=== PATIENT | male | born 1970 | race Caucasian/White ===

== ENCOUNTER → 2016-12-03 | Outpatient (CLI) | payer BC | LOC: RAD 15:22 | PROVIDERS: ATTEND Physician Assistant | DX: M25.521 Pain in right elbow (principal) ==

== ENCOUNTER → 2017-06-10 | Outpatient (CLI) | payer BC ==
[2017-06-10 13:53] LABS: ABSOLUTE BASOPHILS # (AUTO) 0.1 10^3/uL (0.0-0.2); ABSOLUTE EOSINOPHILS # (AUTO) 0.2 10^3/uL (0.0-0.6); ABSOLUTE LYMPHOCYTES (AUTO) 2.4 10^3/uL (0.5-4.7); ABSOLUTE MONOCYTES (AUTO) 0.8 10^3/uL (0.1-1.4); BASOPHILS % (AUTO) 0.8 % (0-2); EOSINOPHILS % (AUTO) 2.9 % (0-6); HEMATOCRIT 41.6 % (37.9-51.0); HEMOGLOBIN 14.1 g/dL (13.5-17.0); HGB HCT DIFFERENCE 0.7; LYMPHOCYTES % (AUTO) 28.3 % (13-45); MEAN CORPUSCULAR HEMOGLOBIN 29.3 pg (27.0-33.4); MEAN CORPUSCULAR HGB CONC 33.9 g/dL (32.0-36.0); MEAN CORPUSCULAR VOLUME 86 fl (80-97); MONOCYTES % (AUTO) 8.9 % (3-13); RED BLOOD COUNT 4.82 10^6/uL (4.35-5.55); RED CELL DISTRIBUTION WIDTH 13.3 % (11.5-14.0); SEGMENTED NEUTROPHILS % (AUTO) 59.1 % (42-78); WHITE BLOOD COUNT 8.5 10^3/uL (4.0-10.5)
[2017-06-10 14:18] LABS: ALANINE AMINOTRANSFERASE 63 U/L (21-72); ALBUMIN 4.6 g/dL (3.5-5.0); ALKALINE PHOSPHATASE 85 U/L (38-126); ANION GAP 14 (5-19); ASPARTATE AMINO TRANSFERASE 32 U/L (17-59); BILIRUBIN,DIRECT 0.3 mg/dL (0.0-0.4); BILIRUBIN,TOTAL 1.2 mg/dL (0.2-1.3); BLOOD UREA NITROGEN 16 mg/dL (7-20); CALCIUM 9.8 mg/dL (8.4-10.2); CARBON DIOXIDE 22 mmol/L (22-30); CHLORIDE 106 mmol/L (98-107); CHOLESTEROL 183.14 mg/dL (0-200); Direct HDL 51 mg/dL (>40); GLUCOSE 89 mg/dL (75-110); POTASSIUM 4.4 mmol/L (3.6-5.0); SODIUM 141.8 mmol/L (137-145); TRIGLYCERIDES 64 mg/dL (<150)
[2017-06-10 14:29] LABS: DIRECT LDL 120 mg/dL (<100)
== END ==
LOC: LAB 13:35
PROVIDERS: ATTEND Psychiatry & Neurology Psychiatry
DX: F41.1 Generalized anxiety disorder (principal); F42.9 Obsessive-compulsive disorder, unspecified; F90.2 Attention-deficit hyperactivity disorder, combined type
CPT/HCPCS: 36415; 80053; 80061; 83036; 84443; 85025

== ENCOUNTER → 2017-08-05 | Outpatient (CLI) | payer BC | LOC: LAB 12:08 | PROVIDERS: ATTEND Family Medicine | DX: E29.1 Testicular hypofunction (principal); N52.9 Male erectile dysfunction, unspecified | CPT/HCPCS: 36415; 84402; 84403 ==

== ENCOUNTER 2017-08-19 11:16 | Observation (INO) | payer BC ==
--- NOTE | 2017-08-19 12:33 | ER Document Report ---
ED Medical Screen (RME) - General Chief Complaint: Chest Pain Stated Complaint: CHEST PAIN,NAUSEA Time Seen by Provider: 08/19/17 12:32 Notes: Patient states he has been having chest pain. Also short of breath. He states he has never had any previous history of heart disease or evaluations. He states he does have Klinefelter syndrome. TRAVEL OUTSIDE OF THE [place] IN LAST 30 DAYS: No - Related Data Allergies/Adverse Reactions: Penicillins Allergy (Verified 08/26/11 23:10) Sulfa (Sulfonamide Antibiotics) Allergy (Verified 08/26/11 23:10) Past Medical History - Social History Chew tobacco use (# tins/day): No Frequency of alcohol use: Rare Drug Abuse: None Renal/ Medical History: Denies: Hx Peritoneal Dialysis Past Surgical History: Reports: Hx Appendectomy, Hx Pancreatic Surgery - Immunizations Hx Diphtheria, Pertussis, Tetanus Vaccination: Yes Physical Exam - Vital signs Vitals: Temp Pulse Resp BP Pulse Ox 98.0 F 66 18 127/98 H 99 08/19/17 11:24 08/19/17 11:24 08/19/17 11:24 08/19/17 11:24 08/19/17 11:24 Course - Vital Signs Vital signs: Temp Pulse Resp BP Pulse Ox 98.0 F 66 18 127/98 H 99 08/19/17 11:24 08/19/17 11:24 08/19/17 11:24 08/19/17 11:24 08/19/17 11:24
[2017-08-19 13:01] LABS: ABSOLUTE BASOPHILS # (AUTO) 0.1 10^3/uL (0.0-0.2); ABSOLUTE EOSINOPHILS # (AUTO) 0.2 10^3/uL (0.0-0.6); ABSOLUTE MONOCYTES (AUTO) 0.8 10^3/uL (0.1-1.4); ABSOLUTE NEUT (AUTO) 5.1 10^3/uL (1.7-8.2); BASOPHILS % (AUTO) 0.9 % (0-2); EOSINOPHILS % (AUTO) 2.7 % (0-6); HEMATOCRIT 42.8 % (37.9-51.0); HEMOGLOBIN 14.8 g/dL (13.5-17.0); HGB HCT DIFFERENCE 1.6; LYMPHOCYTES % (AUTO) 32.1 % (13-45); MEAN CORPUSCULAR HEMOGLOBIN 30.2 pg (27.0-33.4); MEAN CORPUSCULAR HGB CONC 34.5 g/dL (32.0-36.0); MEAN CORPUSCULAR VOLUME 88 fl (80-97); MONOCYTES % (AUTO) 8.6 % (3-13); RED BLOOD COUNT 4.89 10^6/uL (4.35-5.55); RED CELL DISTRIBUTION WIDTH 13.7 % (11.5-14.0); SEGMENTED NEUTROPHILS % (AUTO) 55.7 % (42-78); WHITE BLOOD COUNT 9.2 10^3/uL (4.0-10.5)
--- NOTE | 2017-08-19 13:20 | RADIOLOGY REPORT (SQ) ---
EXAM DESCRIPTION: CHEST PA/LAT COMPLETED DATE/TIME: 08/19/2017 1:00 pm REASON FOR STUDY: cp COMPARISON: 05/28/2011 EXAM PARAMETERS: NUMBER OF VIEWS: two views TECHNIQUE: Digital Frontal and Lateral radiographic views of the chest acquired. RADIATION DOSE: NA LIMITATIONS: none FINDINGS: LUNGS AND PLEURA: No opacities, masses or pneumothorax. No pleural effusion. MEDIASTINUM AND HILAR STRUCTURES: No masses or contour abnormalities. HEART AND VASCULAR STRUCTURES: Heart normal size. No evidence for failure. BONES: No acute findings. HARDWARE: None in the chest. OTHER: No other significant finding. IMPRESSION: NO SIGNIFICANT RADIOGRAPHIC FINDING IN THE CHEST. TECHNICAL DOCUMENTATION: JOB ID: [id number] [employer]- All Rights Reserved
--- NOTE | 2017-08-19 13:24 | EKG REPORT ---
SEVERITY:- ABNORMAL ECG - SINUS RHYTHM LEFT VENTRICULAR HYPERTROPHY : Confirmed by: Kalyan Kemp MD 19-Aug-2017 13:23:00
[2017-08-19 13:29] LABS: ALANINE AMINOTRANSFERASE 51 U/L (21-72); ALBUMIN 4.6 g/dL (3.5-5.0); ALKALINE PHOSPHATASE 84 U/L (38-126); ANION GAP 14 (5-19); ASPARTATE AMINO TRANSFERASE 25 U/L (17-59); BILIRUBIN,DIRECT 0.2 mg/dL (0.0-0.4); BILIRUBIN,TOTAL 0.8 mg/dL (0.2-1.3); BLOOD UREA NITROGEN 18 mg/dL (7-20); CALCIUM 9.5 mg/dL (8.4-10.2); CARBON DIOXIDE 24 mmol/L (22-30); CHLORIDE 105 mmol/L (98-107); CREATININE RESULT 0.89 mg/dL (0.52-1.25); GLUCOSE 85 mg/dL (75-110); POTASSIUM 4.2 mmol/L (3.6-5.0); SODIUM 143.1 mmol/L (137-145); TOTAL PROTEIN 7.6 g/dL (6.3-8.2)
[2017-08-19] MEDS ORDERED: METOCLOPRAMIDE HCL INJ/PF 10 MG/2 ML SDV IV ONE (15:01)
[2017-08-19] MEDS ORDERED: DIPHENHYDRAMINE HCL 50 MG/ML VIAL IV ONE (15:01)
--- NOTE | 2017-08-19 16:16 | RADIOLOGY REPORT (SQ) ---
EXAM DESCRIPTION: CTA CHEST COMPLETED DATE/TIME: 08/19/2017 3:55 pm REASON FOR STUDY: cp COMPARISON: Chest x-ray 08/19/2017 TECHNIQUE: CT scan of the chest performed using helical scanning technique with dynamic intravenous contrast injection. Images reviewed with lung, soft tissue and bone windows. Reconstructed coronal and sagittal MPR images reviewed. Additional 3 dimensional post-processing performed to develop Maximal Intensity Projection images (IA P). All images stored on PACS. All CT scanners at this facility use dose modulation, iterative reconstruction, and/or weight based d osing when appropriate to reduce radiation dose to as low as reasonably achievable (ALARA). [facility]: Dose Right [facility]: CareDose [facility]: Dose Right [facility]: Teradose 4D [facility]: Autosprite CONTRAST TYPE AND DOSE: 82 cc Isovue 370- low osmolar. Contrast bolus optimized for the pulmonary arteries. Not diagnostic for the aorta. RENAL FUNCTION: Creatinine 0.9 BUN 18 RADIATION DOSE: . LIMITATIONS: None. FINDINGS: LUNGS AND PLEURA: No masses, infiltrates, pneumothorax. No pleural effusions, calcificati ons. AORTA AND GREAT VESSELS: No aneurysm. Contrast bolus not optimized for the aorta. HEART: No pericardial effusion. No significant coronary artery calcifications. PULMONARY ARTERIES: No emboli visualized in the main pulmonary arteries or the segmental branches. HILAR AND MEDIASTINAL STRUCTURES: There is mild right hilar adenopathy. HARDWARE: None in the chest. UPPER ABDOMEN: No significant findings. Limited exam. THYROID AND OTHER SOFT TISSUES: No masses. No adenopathy. BONES: No acute or significant finding. 3D MIPS: Confirm above findings. OTHER: No other significant finding. IMPRESSION: 1. There is no evidence of pulmonary emboli. 2. There is mild right hilar adenopathy. COMMENT: Quality ID # [id number]: Final reports with documentation of one or more dose reduction techniques (e.g., Automated exposure control, adjustment of the mA and/or kV according to patient size, use of iterative reconstruction technique) TECHNICAL DOCUMENTATION: JOB ID: [id number]- All Rights Reserved
--- NOTE | 2017-08-19 17:34 | ER Document Report ---
ED General - General Chief Complaint: Chest Pain Stated Complaint: CHEST PAIN,NAUSEA Time Seen by Provider: 08/19/17 12:32 Mode of Arrival: Ambulatory Information source: Patient Notes: This is a 46-year-old man with a history of Klinefelter syndrome that presents to the emergency room. Patient states that the episode occurred while he was at rest, sitting down at work. He does say he had associated shortness of breath. TRAVEL OUTSIDE OF THE [place] IN LAST 30 DAYS: No - HPI Onset: Just prior to arrival Onset/Duration: Sudden Quality of pain: Dull Severity: Moderate Pain Level: 4 Associated symptoms: Shortness of breath Exacerbated by: Denies Relieved by: Denies Similar symptoms previously: No Recently seen / treated by doctor: No - Related Data Allergies/Adverse Reactions: Penicillins Allergy (Verified 08/26/11 23:10) Sulfa (Sulfonamide Antibiotics) Allergy (Verified 08/26/11 23:10) Home Medications: Current Home Medications Oxycodone HCl/Acetaminophen [Oxycodon-Acetaminophen 7.5-325] 1 tab PO 5XDP PRN 08/19/17 [History] Past Medical History - General Information source: Patient - Social History Smoking Status: Never Smoker Cigarette use (# per day): No Chew tobacco use (# tins/day): No Frequency of alcohol use: Rare Drug Abuse: None Lives with: Family Family History: Reviewed & Not Pertinent Patient has suicidal ideation: No Patient has homicidal ideation: No - Medical History Medical History: Other - Klinefelter's syndrome Renal/ Medical History: Denies: Hx Peritoneal Dialysis Past Surgical History: Reports: Hx Appendectomy, Hx Pancreatic Surgery - Immunizations Hx Diphtheria, Pertussis, Tetanus Vaccination: Yes Review of Systems - Review of Systems Constitutional: denies: Chills, Fever EENT: No symptoms reported Cardiovascular: See HPI Respiratory: No symptoms reported Gastrointestinal: No symptoms reported Genitourinary: No symptoms reported Male Genitourinary: No symptoms reported Musculoskeletal: No symptoms reported Skin: No symptoms reported Hematologic/Lymphatic: No symptoms reported Neurological/Psychological: No symptoms reported Physical Exam - Vital signs Vitals: Temp Pulse Resp BP Pulse Ox 98.0 F 66 18 127/98 H 99 08/19/17 11:24 08/19/17 11:24 08/19/17 11:24 08/19/17 11:24 08/19/17 11:24 Notes: Physical exam: GENERAL: 46-year-old man, alert and oriented 3, no acute distress HEAD: Atraumatic, normocephalic. EYES: Pupils equal round and reactive to light, extraocular movements intact, sclera anicteric, conjunctiva are normal. ENT: TMs normal, nares patent, oropharynx clear without exudates. Moist mucous membranes. NECK: Normal range of motion, supple without obvious mass or JVD. LUNGS: Breath sounds clear to auscultation bilaterally and equal. No wheezes rales or rhonchi. HEART: Regular rate and rhythm without murmurs, rubs or gallops. ABDOMEN: Soft, normoactive bowel sounds. No tenderness to palpation. No guarding, no rebound. No masses appreciated. EXTREMITIES: Normal range of motion, no pitting or edema. No clubbing or cyanosis. NEUROLOGICAL: Cranial nerves II through XII grossly intact. Normal speech, moving all extremities. PSYCH: Normal mood, normal affect. SKIN: Warm, Dry, normal turgor, no rashes or lesions noted. Course - Vital Signs Vital signs: Temp Pulse Resp BP Pulse Ox 97.9 F 54 L 18 107/65 95 08/19/17 22:00 08/19/17 22:00 08/19/17 22:00 08/19/17 22:00 08/19/17 22:00 - Laboratory Result Diagrams: 08/19/17 12:48 08/19/17 12:48 - Diagnostic Test Radiology reviewed: Image reviewed, Reports reviewed - CTA shows no pulmonary emboli - EKG Interpretation by Me Rate: Normal Rhythm: NSR - EKG shows normal sinus rhythm with a ventricular rate of 56, no acute ST-T wave changes Discharge - Discharge Clinical Impression: Chest pain Condition: Stable Disposition: ADMITTED OBSERVATION Admitting Provider: Hospitalist - Dr. glez Unit Admitted: Telemetry
[2017-08-19] MEDS ORDERED: NITROGLYCERIN 0.4 MG/TAB 25 TAB/BOTTLE SL PRN (18:01)
[2017-08-19] MEDS ORDERED: MAG HYDROX/AL HYDROX/SIMETH SUSP 30 ML UDCUP PO PRN (18:01)
[2017-08-19] MEDS ORDERED: ONDANSETRON HCL INJ/PF 4 MG/2 ML SDV IV PRN (18:01)
[2017-08-19] MEDS: PANTOPRAZOLE SODIUM 40 MG VIAL IV SCH (23:23)
[2017-08-20 08:12] LABS: Direct HDL 51 mg/dL (>40); TRIGLYCERIDES 74 mg/dL (<150)
[2017-08-20 08:24] LABS: DIRECT LDL 120 mg/dL (<100)
[2017-08-20] MEDS ORDERED: ASPIRIN 81 MG TABLET, ENT COATED PO SCH (10:00)
[2017-08-20] MEDS: PANTOPRAZOLE SODIUM 40 MG VIAL IV SCH (10:59)
[2017-08-20 12:39] VITALS: BP 121/81
--- NOTE | 2017-08-20 17:58 | XCELERA REPORT ---
[address] [address] Transthoracic Echocardiogram Report Name: EDY CORTEZ Age: 46 yrs Gender: Male : 1970 Patient Status: Inpatient Patient Location: [address] [place] [address] Study Date: 08/20/2017 09:33 AM Height: 73 in Weight: 239 lb BSA: 2.3 m2 Procedure: A two-dimensional transthoracic echocardiogram with color flow and Doppler was performed. Study Quality: Fair. Reason For Study: CHEST PAIN History: CHEST PAIN. Ordering Physician: LASHAUN GARCIA Performed By: Shira Rocha Interpretation Summary The left ventricle is normal in size. There is normal left ventricular wall thickness. LV EF is 65% Left ventricular systolic function is normal. Doppler measurements suggest normal left ventricular diastolic function The left ventricular wall motion is normal. There is no thrombus. The right ventricle is grossly normal size. The right ventricle is not well visualized secondary to technical limitations The right atrium is normal. The left atrial size is normal. There is no evidence of mitral valve prolapse. There is no mitral valve stenosis. There is no mitral regurgitation noted. There is no aortic valve stenosis There is no LVOT obstruction. No aortic regurgitation is present. There is no tricuspid stenosis. There is a trace amount of tricuspid regurgitation Right ventricular systolic pressure is normal. RVSP is 18 mm of Hg , with RA mean of 5. There is no pericardial effusion. MMode/2D Measurements & Calculations RVDd: 3.7 cm LVIDd: 4.7 cmFS: 37.9 % Ao root diam: 3.4 cm IVSd: 1.3 cm LVIDs: 2.9 cmEDV(Teich): 104.2 ml LVPWd: 1.1 cmESV(Teich): 33.4 ml Ao root area: 8.9 cm2 EF(Teich): 68.0 % LA dimension: 3.8 cm LVOT diam: 2.2 cm LVOT area: 3.8 cm2 Doppler Measurements & Calculations MV E max alfonso: MV P1/2t max alfonso: Ao V2 max: LV V1 max P.4 cm/sec 66.3 cm/sec 101.3 cm/sec 2.6 mmHg MV A max alfonso: MV P1/2t: 85.4 msec Ao max PG: LV V1 max: 52.4 cm/sec MVA(P1/2t): 2.6 cm2 4.1 mmHg 80.2 cm/sec MV E/A: 1.2 MV dec slope: NLELY(V,D): 3.0 cm2 227.6 cm/sec2 PA V2 max: TR max alfonso: 80.9 cm/sec 182.2 cm/sec PA max PG: TR max P.3 mmHg 2.6 mmHg Left Ventricle The left ventricle is normal in size. There is normal left ventricular wall thickness. LV EF is 65%. Left ventricular systolic function is normal. Doppler measurements suggest normal left ventricular diastolic function. The left ventricular wall motion is normal. There is no thrombus. Right Ventricle The right ventricle is grossly normal size. The right ventricle is not well visualized secondary to technical limitations. Atria The right atrium is normal. The left atrial size is normal. Mitral Valve There is no evidence of mitral valve prolapse. There is no vegetation seen on the mitral valve. There is no mitral valve stenosis. There is no mitral regurgitation noted. Aortic Valve There is no aortic valvular vegetation. There is no aortic valve stenosis. There is no LVOT obstruction. No aortic regurgitation is present. Tricuspid Valve There is no tricuspid stenosis. There is a trace amount of tricuspid regurgitation. Right ventricular systolic pressure is normal. RVSP is 18 mm of Hg , with RA mean of 5. Pulmonic Valve There is no pulmonic valvular stenosis. There is no pulmonic valvular regurgitation. Great Vessels The aortic root is normal size. Effusions There is no pericardial effusion. : LASHAUN GARCIA > Miya Singh
--- NOTE | 2017-08-21 02:43 | CONSULTATION REPORT E ---
Consultation Report NAME: EDY CORTEZ : 1970 AGE: 46Y DATE: 08/20/2017 423 A TO: DWIGHT MART M.D. FROM: POLLO ZAVALA M.D. Requesting Physician REASON FOR CONSULT: Chest pain. HISTORY OF PRESENT ILLNESS: The patient is a 46-year-old male with known history of Klinefelter syndrome and arthritis of his hands. 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 He states that he was watching TV yesterday, on 08/19/17, when he had sudden sharp, intermittent chest pains. The pain lasted for a few seconds, in the front and to the right and left of upper sternum. This lasted for some time, and hence, the patient came to the emergency room. He denies any palpitations, shortness of breath, PND, orthopnea, or leg edema. There is no dizziness, syncope, or presyncope. There are no TIA or CVA symptoms. PAST MEDICAL HISTORY: Positive for: 1. Klinefelter syndrome. 2. Negative for hypertension. 3. Negative for diabetes mellitus. 4. No history of asthma. 5. No history of COPD. 6. No history of sleep apnea. 7. No history of pulmonary embolism. 8. No history of thyroid disease. 9. No history of chronic kidney disease. 10. No history of TIA or CVA. 11. No history of headaches, migraines, or seizures. 12. History of Klinefelter syndrome and arthritis of his hands. FAMILY HISTORY: Negative for hypertension or coronary artery disease. PAST SURGICAL HISTORY: 1. Hernia surgery. 2. *------*. SOCIAL HISTORY: The patient does not smoke. There is no history of EtOH abuse. ALLERGIES: 1. PENICILLIN. 2. SULFA. CODE STATUS: The patient is FULL CODE. His is the surrogate healthcare decision maker. MEDICATIONS: 1. Maalox 30 mL p.o. indigestion. 2. Aspirin/Ecotrin 81 mg p.o. daily. 3. Nitroglycerin 1 tablet sublingual p.r.n. chest pain. 4. Zofran 4 mg IV q.6 h. p.r.n. 5. Pantoprazole 40 mg IV q.12 h. 6. He also *------*. REVIEW OF SYSTEMS: CONSTITUTIONAL: No history of fever, chills or rigors. Complains of generalized muscle weakness due to Klinefelter's syndrome. HEAD: No history of fever, chills, or rigors. EYES: No history of amblyopia or diplopia. No history of amaurosis fugax. No history of visual disturbance. No history of glaucoma. EARS: No history of hearing loss. No history of tinnitus. No history of recurrent ear infections. NOSE: No history of hay fever. No history of nasal polyps. No history of nosebleeds. MOUTH: No history of altered taste sensation. No ulcers in the mouth. No bleeding from the gums. THROAT: No odynophagia or dysphagia. No recurrent sore throats. SKIN: No pruritus. No yellowish discoloration of skin. No psoriasis. No skin cancer. NECK: There is no painful or painless swelling of the neck. No goiter. LUNGS: No cough, wheezing. No history of asthma or COPD. No history of pleuritic chest pain. No hemoptysis. No history of pulmonary embolism. No history of pneumonia. No history of wheezing. CARDIAC: No history of hypertension. No history of coronary artery disease, AL, or congestive heart failure. No history of leg edema. No history of dizziness. No palpitations. No history of cardiac arrhythmia. Note, patient presents with atypical, most likely, noncardiac chest pain. ENDOCRINE: No history of diabetes mellitus or thyroid disease. No polydipsia, polyuria. No heat or cold intolerance. KIDNEYS: No history of chronic kidney disease. No history of urinary tract infection. No hematuria, pyuria, or dysuria. GI: No history of GI bleed. No history of peptic ulcer disease. No history of jaundice. No history of sclerosis or hepatitis. 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 He also had collagen vascular disease. CENTRAL NERVOUS SYSTEM: There is no history of TIA or CVA. No history of gait imbalance. No history of sleep apnea. No history of headaches, migraines, or seizures. PSYCHIATRIC: No history of anxiety or depression. No history of suicidal ideation. ENDOCRINE: History of Klinefelter syndrome present with some muscle weakness but patient is still able to work and golf without any problems. VASCULAR: No history of calf or buttock claudication. No history of DVT. HEMATOLOGIC: No history of bleeding diathesis. No history of clotting disorders. PHYSICAL EXAMINATION: GENERAL: On examination, the patient is slightly overweight but well groomed, in no acute distress. At present, without chest pain. VITAL SIGNS: The patient is afebrile with a temperature of 98 degrees Fahrenheit, pulse is 57 beats per minute, blood pressure 121/81, respirations 19 per minute, O2 sats are 97% on room air. HEAD: Atraumatic, normocephalic. EYES: Pupils are equal, round, regular, reactive to light and accommodation. Extraocular movements are normal. There is no conjunctival pallor. There is no scleral icterus. EARS: Tympanic membranes are intact. External auditory canals are clear. NOSE: There is no deviated nasal septum. There is no inflammation of the nasal mucous membrane. MOUTH: Mucous membranes of the mouth are moist. Tongue is moist. There are no ulcers. There is no bleeding from the gums. THROAT: There is no redness of the oropharynx. There are no exudates. SKIN: There are no skin rashes. There are no skin lesions. There is no petechiae or ecchymosis. NECK: Supple. There is no JVD. Carotids are equal. There is no lymphadenopathy. There is no goiter. Trachea is central. LUNGS: Clear to auscultation and percussion. There is no chest wall tenderness. HEART: S1, S2 heard. There is no S3 gallop. There is no S4 gallop. There is a systolic murmur at the left sternal border and at the apex without radiation. There is no rub. There is no gallop. ABDOMEN: Soft, nontender. There is no hepatosplenomegaly. Bowel sounds are well heard. EXTREMITIES: Femorals are well felt. There are no femoral bruits. Leg pulses are well felt. There is no DVT or cellulitis. There is no pedal edema. There is calf tenderness. There is no cyanosis or clubbing. CENTRAL NERVOUS SYSTEM: The patient is conscious, awake, alert, oriented x3, with no focal deficit. PSYCHIATRIC: The patient's judgment and insight are intact. His affect is normal. IMAGING STUDIES: The patient's EKG shows sinus rhythm with left ventricular hypertrophy. His pulmonary CT angiogram shows no pulmonary emboli with mild hilar lymphadenopathy. The patient's chest x-ray is negative. The patient's echocardiogram is within normal limits with trace mitral regurgitation and trace tricuspid regurgitation with normal right ventricular systolic pressure. LABORATORY DATA: The patient's white count is 9,200, hemoglobin is 14.8, hematocrit is 42.8, and his platelet count is 312,000. The patient's triglycerides are 74. His LDL cholesterol is elevated at 120. His HDL cholesterol is good at 51. The patient's lipase is 108.4. His troponin I is negative x3. Sodium is 143.1, potassium 4.2, chloride is 105, CO2 is 24, BUN is 18, creatinine is 0.89, GFR is greater than 60, glucose is 89, hemoglobin A1c is 5.3, and his liver function tests are normal. The patient's total protein is 7.6, and his albumin is 4.6. IMPRESSION: 1. Chest pain, most likely noncardiac. Patient with paucity of risk factors for coronary artery disease. Except for the patient's age and hyperlipidemia, there are no other risk factors for coronary artery disease. Note, negative EKG for record changes for ischemia. Negative cardiac enzymes. 2. Klinefelter syndrome. 3. Arthritis of the hands. 4. Hyperlipidemia. RECOMMENDATION: 1. I discussed the patient's echo and EKG findings, as outlined to the patient. The patient will be discharged home on oxycodone/acetaminophen 7.5/325, 1 tablet p.o. 5 per day p.r.n. 2. Omeprazole 40 mg capsule, 40 mg p.o. daily for 30 days. 3. I will ask the patient to follow up with me. If the patient develops recurrent chest pain, then I would recommend that the patient have an IV Lexiscan Cardiolite stress test. We will monitor the patient closely. Echo findings, EKG findings as well other findings discussed with the patient. Note that the patient was seen at 12:36 p.m. TIME SPENT: Note that 40 minutes was spent on this patient with more than 50% of the time spent on direct patient care. His medications have been reviewed. His labs have been discussed with the patient. Note, this required moderately complex medical decision making. I discussed with the patient's and discussed with the Hospitalist. The patient can be discharged home and I will see the patient in the office, and see if there is any recurrence of chest pain; then would recommend that the patient had a Cardiolite Lexiscan stress test. Otherwise, we will just follow the patient yearly. All this was discussed with the patient and the patient's . DICTATING PHYSICIAN: DWIGHT MART M.D. [id number] PHY#: [id number] ID: [id number] JOB#: [id number] ACCT: [id number] cc:DWIGHT MART M.D. >
--- NOTE | 2017-08-23 10:13 | PDOC H&P ---
History of Present Illness Admission Date/PCP: 08/19/17 17:49 Patient complains of: Chest pain History of Present Illness: EDY CORTEZ is a 46 year old male with no medical history complaining of chest pain x day. Patient states he was sitting at the table around 10 am eating when he felt a pain starting from his back to his chest. Patient states he felt nauseated at the same time but did not vomit. It then went away. The same thing happened while he was in the ED. Patient states it last a few minutes. Patient denied any palpitations or SOB. 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 Patient does not smoke. He does not have HTN or diabetes. He is not very active. In the ED CTA was done and was negative for dissection. Hospitalist called to bring patient in for observation and ACS rule out. Past Medical History Medical History: None Cardiac Medical History: Denies: None, Atrial Fibrillation, Congestive Heart Failure, Coronary Artery Disease, DVT, Myocardial Infarction, Hyperlipidema, Hypertension, Peripheral Vascular Disease, Pulmonary Embolism, Heart Murmur, Other Pulmonary Medical History: Denies: None, Asthma, Bronchitis, Chronic Obstructive Pulmonary Disease (COPD ), Intubation, Pneumonia, Respiratory Failure, Sleep Apnea, Tuberculosis, Other Malignancy Medical History: Denies: None, Bone Cancer, Brain Cancer, Breast Cancer, Cervical Cancer, Colorectal Cancer, Leukemia, Liver Cancer, Lung Cancer, Lymphoma, Ovarian Cancer , Pancreatic Cancer, Renal (Kidney) Cancer, Skin Cancer, Other GI Medical History: Denies: None, Cirrhosis, Crohn's Disease, Diverticulitis, Gastroesophageal Reflux Disease, Hepatitis, Hiatal Hernia, Peptic Ulcer Disease, Ulcerative Colitis, Other Musculoskeltal Medical History: Denies: None, Arthritis, Fibromyalgia, Gout, Other Psychiatric Medical History: Denies: None, Alcohol Dependency, Attention Deficit Hyperactivity Disorder, Bipolar Disorder, Dementia, Depression, General Anxiety Disorder, Personality Disorder, Post Traumatic Stress Disorder, Schizoaffective Disorder, Substance Abuse, Tobacco Dependency, Other Traumatic Medical History: Denies: None, Gunshot Wound, Pneumothorax, Stab Wound, Traumatic Brain Injury , Other Hematology: Denies: None, Anemia, Hemophilia, Sickle Cell Disease, Bleeding Tendencies, Heparin Induced Thrombocytopenia, Neutropenia, Other Infectious Medical History: Denies: None, Clostridium Difficile, Hepatitis B, Hepatitis C, HIV, Methicillin-Resistant Staph Aureus, Vancomycin-Resistant Enterococci, Other Past Surgical History Past Surgical History: Reports: Appendectomy Social History Information Source: Patient Lives with: Family Smoking Status: Never Smoker Drugs: None - Advance Directive Resuscitation Status: Full Code Family History Family History: None Parental Family History Reviewed: No Children Family History Reviewed: No Sibling(s) Family History Reviewed.: No Medication/Allergy Home Medications: Oxycodone HCl/Acetaminophen [Oxycodon-Acetaminophen 7.5-325] 1 tab PO 5XDP PRN 08/19/17 Omeprazole 40 mg PO DAILY 30 Days #30 capsule. 08/20/17 Allergies/Adverse Reactions: Penicillins Allergy (Verified 08/26/11 23:10) Sulfa (Sulfonamide Antibiotics) Allergy (Verified 08/26/11 23:10) Review of Systems Constitutional: ABSENT: chills, fever(s), headache(s), weight gain, weight loss Eyes: ABSENT: visual disturbances Ears: ABSENT: hearing changes Cardiovascular: PRESENT: chest pain. ABSENT: dyspnea on exertion, edema, orthropnea, palpitations Respiratory: ABSENT: cough, hemoptysis Gastrointestinal: PRESENT: nausea. ABSENT: abdominal pain, constipation, diarrhea, hematemesis, hematochezia, vomiting Genitourinary: ABSENT: dysuria, hematuria Musculoskeletal: PRESENT: other - chronic hand pain. ABSENT: joint swelling Integumentary: ABSENT: rash, wounds Neurological: ABSENT: abnormal gait, abnormal speech, confusion, dizziness, focal weakness, syncope Psychiatric: ABSENT: anxiety, depression, homidical ideation, suicidal ideation Endocrine: ABSENT: cold intolerance, heat intolerance, polydipsia, polyuria Hematologic/Lymphatic: ABSENT: easy bleeding, easy bruising Physical Exam Vital Signs: Temp Pulse Resp BP Pulse Ox 98 F 57 L 19 121/81 97 08/20/17 12:36 08/20/17 12:36 08/20/17 12:36 08/20/17 12:36 08/20/17 12:36 Intake & Output 08/20/17 08/21/17 08/22/17 06:59 06:59 06:59 Intake Total 0 Output Total 500 Balance -500 Weight 107 kg General appearance: PRESENT: no acute distress, well-developed, well-nourished Head exam: PRESENT: atraumatic, normocephalic Eye exam: PRESENT: conjunctiva pink, EOMI, PERRLA. ABSENT: scleral icterus Ear exam: PRESENT: normal external ear exam Mouth exam: PRESENT: moist, tongue midline Neck exam: ABSENT: carotid bruit, JVD, lymphadenopathy, thyromegaly Respiratory exam: PRESENT: clear to auscultation stewart. ABSENT: rales, rhonchi, wheezes Cardiovascular exam: PRESENT: RRR. ABSENT: diastolic murmur, rubs, systolic murmur Pulses: PRESENT: normal dorsalis pedis pul Vascular exam: PRESENT: normal capillary refill GI/Abdominal exam: PRESENT: normal bowel sounds, soft. ABSENT: distended, guarding, mass, organolmegaly, rebound, tenderness Rectal exam: PRESENT: deferred Extremities exam: PRESENT: full ROM. ABSENT: calf tenderness, clubbing, pedal edema Neurological exam: PRESENT: alert, awake, oriented to person, oriented to place , oriented to time, oriented to situation, CN II-XII grossly intact. ABSENT: motor sensory deficit Psychiatric exam: PRESENT: appropriate affect, normal mood. ABSENT: homicidal ideation, suicidal ideation Skin exam: PRESENT: dry, intact, warm. ABSENT: cyanosis, rash Results Laboratory Results: 08/19/17 08/20/17 08/20/17 20:00 02:05 08:57 Troponin I < 0.012 < 0.012 < 0.012 Impressions: Chest X-Ray 08/19/17 12:32 IMPRESSION: NO SIGNIFICANT RADIOGRAPHIC FINDING IN THE CHEST. Chest/Abdomen CTA 08/19/17 15:00 IMPRESSION: 1. There is no evidence of pulmonary emboli. 2. There is mild right hilar adenopathy. Assessment & Plan - Diagnosis (1) Chest pain Is this a current diagnosis for this admission?: Yes Plan: Plan is to rule out ACS with serial troponins and echo. No stress test ordered. Cardiology consulted. No beta ugo as patient is bradycardic. Will place on tele and monitor. Will check lipase and start PPI. Lipid panel and A1c ordered for the am. - Time Time Spent: 30 to 50 Minutes Anticipated discharge: Home Within: within 24 hours - Inpatient Certification Medical Necessity: Need For Continuous Telemetry Monitoring
--- NOTE | 2017-08-25 05:48 | PDOC DISCHARGE SUMMARY ---
General - Admit/Disc Date/PCP Admission Date/Primary Care Provider: 08/19/17 17:49 Discharge Date: 08/20/17 - Discharge Diagnosis (1) Chest pain Is this a current diagnosis for this admission?: Yes - Additional Information Resuscitation Status: Full Code Discharge Diet: As Tolerated Discharge Activity: Activity As Tolerated, Balance Activity w/Rest Home Medications: Oxycodone HCl/Acetaminophen [Oxycodon-Acetaminophen 7.5-325] 1 tab PO 5XDP PRN 08/19/17 Omeprazole 40 mg PO DAILY 30 Days #30 capsule. 08/20/17 History of Present Illness History of Present Illness: EDY CORTEZ is a 46 year old male presenting with 1 day of chest pain. Please refer to the original history and physical dictated by Dr. Dorota Rizzo for further detail. Hospital Course Hospital Course: Patient was bought in for observation to rule out ACS. Serial troponins were completed and were negative. Cardiac echo was normal. Patient was evaluated by cardiology Dr. Garg who scheduled patient for out patient stress test. Patient was discharge on a PPI for possible GERD. Patient no longer had any chest pain and was discharge home. Physical Exam Vital Signs: Temp Pulse Resp BP Pulse Ox 98 F 57 L 19 121/81 97 08/20/17 12:36 08/20/17 12:36 08/20/17 12:36 08/20/17 12:36 08/20/17 12:36 General appearance: PRESENT: no acute distress, well-developed, well-nourished Head exam: PRESENT: atraumatic, normocephalic Eye exam: ABSENT: scleral icterus Neck exam: ABSENT: carotid bruit, JVD, lymphadenopathy, thyromegaly Respiratory exam: PRESENT: clear to auscultation stewart. ABSENT: rales, rhonchi, wheezes Cardiovascular exam: PRESENT: RRR. ABSENT: diastolic murmur, rubs, systolic murmur GI/Abdominal exam: PRESENT: normal bowel sounds, soft. ABSENT: distended, guarding, mass, organolmegaly, rebound, tenderness Rectal exam: PRESENT: deferred Extremities exam: PRESENT: full ROM. ABSENT: calf tenderness, clubbing, pedal edema Neurological exam: PRESENT: alert, awake, oriented to person, oriented to place , oriented to time, oriented to situation, CN II-XII grossly intact. ABSENT: motor sensory deficit Psychiatric exam: PRESENT: appropriate affect, normal mood. ABSENT: homicidal ideation, suicidal ideation Skin exam: PRESENT: dry, intact, warm. ABSENT: cyanosis, rash Results Laboratory Results: 08/19/17 08/20/17 08/20/17 20:00 02:05 08:57 Troponin I < 0.012 < 0.012 < 0.012 Impressions: Chest X-Ray 08/19/17 12:32 IMPRESSION: NO SIGNIFICANT RADIOGRAPHIC FINDING IN THE CHEST. Chest/Abdomen CTA 08/19/17 15:00 IMPRESSION: 1. There is no evidence of pulmonary emboli. 2. There is mild right hilar adenopathy. Qualifiers PATEINT BEING DISCHARGED WITH ANY OF THE FOLLOWING DIAGNOSIS?: No Plan Time Spent: Less than 30 Minutes - Discharge home cardiology follow up for stress test. Patient discharged on PPI for possible GERD.
== END 2017-08-20 12:52 | disposition home or self-care (01) ==
LOC: ER 11:16 → EH 17:49 → 4W 22:53
PROVIDERS: ADMIT Hospitalist; ATTEND Hospitalist
DX: R07.9 Chest pain, unspecified (principal); Q98.4 Klinefelter syndrome, unspecified; E78.5 Hyperlipidemia, unspecified; M13.842 Other specified arthritis, left hand; M13.841 Other specified arthritis, right hand; M35.9 Systemic involvement of connective tissue, unspecified; R01.1 Cardiac murmur, unspecified; I08.1 Rheumatic disorders of both mitral and tricuspid valves; R11.0 Nausea; R59.0 Localized enlarged lymph nodes; Z90.49 Acquired absence of other specified parts of digestive tract
CPT/HCPCS: 93005; 99285; 96374; 96375; 36415 ×2; 83690; 85025; 80053; 84484 ×2; 83036; 80061; 93306; 71020; 71275; 93010; G0378 ×3; J1200; J2765; S0164 ×2; J3490 ×2

== ENCOUNTER → 2017-10-14 | Outpatient (CLI) | payer BC ==
--- NOTE | 2017-10-15 14:21 | RADIOLOGY REPORT (SQ) ---
EXAM DESCRIPTION: MRI RT UPPER JOINT WITHOUT COMPLETED DATE/TIME: 10/14/2017 5:54 pm REASON FOR STUDY: M25.521 PAIN IN RIGHT ELBOW M25.521 PAIN IN RIGHT ELBOW COMPARISON: 12/03/2016 TECHNIQUE: Right elbow images acquired and stored on PACS. Multiplanar images to include fat sensit abril sequences as T1, fluid sensitive sequences as T2/STIR, cartilage sensitive sequences as FSPD, and gradient echo sequences. LIMITATIONS: Susceptibility artifact. FINDINGS: BONE MARROW: No alteration of signal to suggest marrow replacement or edema. No occult fra cture. No large osteophytes. JOINT EFFUSION: None noted. No loose bodies. ARTICULAR SURFACES: Normal. MEDIAL COLLATERAL LIGAMENT COMPLEX: Intact without edema or tear. MEDIAL EPICONDYLE AND COMMON FLEXOR TENDON: No tendinopathy. No partial or full-thickness tear. LATERAL COLLATERAL LIGAMENT: Intact without edema or tear. LATERAL EPICONDYLE AND COMMON EXTENSOR TENDON: Mild increased T2 signal origin of the common extensor tendon series 6, images 17 and 18. LATERAL ULNAR COLLATERAL LIGAMENT: Intact without evidence for tear. BICEPS TENDON: Intact. No partial or full-thickness tendon tear. No muscle edema. TRICEPS TENDON: Intact. ULNAR NERVE: Persistent increased intrinsic signal in the ulnar nerve, axial images 16-18 adjacent to metal artifact. ADJACENT SOFT TISSUES: No masses or edema. OTHER: No other significant finding. IMPRESSION: Unchanged increased signal in the ulnar nerve status post trans position. Tendinopathy origin of the common extensor tendon. TECHNICAL DOCUMENTATION: JOB ID: [id number] [employer]- All Rights Reserved
== END ==
LOC: RAD 16:06
PROVIDERS: ATTEND Physician Assistant
DX: M25.521 Pain in right elbow (principal)

== ENCOUNTER → 2018-09-03 | Outpatient (CLI) | payer BC ==
--- NOTE | 2018-09-03 10:16 | RADIOLOGY REPORT (SQ) ---
EXAM DESCRIPTION: U/S ABDOMEN COMPLETE W/O DOP COMPLETED DATE/TIME: 09/03/2018 8:53 am REASON FOR STUDY: ABD TENDERNESS-EPIGASTRIC (R10.816), ABD TENDERNESS-LUQ (R10.812), ABD TEND R10.81 6 EPIGASTRIC ABDOMINAL TENDERNESS R10.812 LEFT UPPER QUADRANT ABDOMINAL TENDERNESS COMPARISON: CT angio chest 08/19/2017 MRI lumbar spine 05/28/2016 Abdominal ultrasound 02/28/2016 TECHNIQUE: Dynamic and static grayscale images acquired of the abdomen and recorded on PACS. Additio nal selected color Doppler and spectral images recorded. Note: Study does not meet criteria for complete doppler/duplex scan LIMITATIONS: None. FINDINGS: PANCREAS: Midline pancreas is prominent, with mixed echogenicity, question pancreatitis. No gross peripancreatic fluid collections. LIVER: Increased echogenicity, difficult to penetrate with the ultrasound energy from fatty infiltrat ion. No gross focal masses. LIVER VASCULATURE: Normal directional flow of the main portal vein and hepatic veins. GALLBLADDER: Echogenic sludge layers in the gallbladder without shadowing stones. No gross gallbladd er wall thickening or pericholecystic fluid. ULTRASOUND-DETECTED HANSEN'S SIGN: Negative. INTRAHEPATIC DUCTS AND COMMON DUCT: CBD and intrahepatic ducts normal caliber. No filling defects. INFERIOR VENA CAVA: Normal flow. AORTA: No aneurysm. RIGHT KIDNEY: Normal size. Normal echogenicity. No solid or suspicious masses. No hydronephros is. No calcifications. LEFT KIDNEY: Normal size. Normal echogenicity. No solid or suspicious masses. No hydronephrosi s. No calcifications. SPLEEN: Normal size. No solid masses. PERITONEAL AND PLEURAL SPACES: No ascites or effusions. OTHER: No other significant finding. IMPRESSION: Midline pancreas is prominent, and mixed echogenicity, question pancreatitis Sludge in the gallbladder without shadowing stones or gallbladder wall thickening/ pericholecystic fl uid TECHNICAL DOCUMENTATION: JOB ID: [id number] [employer]- All Rights Reserved Reading location - IP/workstation name: [email or web address]
== END ==
LOC: RAD 07:58
PROVIDERS: ATTEND Internal Medicine Gastroenterology
DX: R10.816 Epigastric abdominal tenderness (principal); R10.812 Left upper quadrant abdominal tenderness; R10.811 Right upper quadrant abdominal tenderness
CPT/HCPCS: 76700

== ENCOUNTER → 2018-09-06 | Outpatient (CLI) | payer BC ==
[2018-09-06 15:58] LABS: HEMATOCRIT 40.8 % (37.9-51.0); HEMOGLOBIN 14.1 g/dL (13.5-17.0); MEAN CORPUSCULAR HEMOGLOBIN 29.8 pg (27.0-33.4); MEAN CORPUSCULAR HGB CONC 34.5 g/dL (32.0-36.0); MEAN CORPUSCULAR VOLUME 87 fl (80-97); PLATELET COUNT 314 10^3/uL (150-450); RED BLOOD COUNT 4.72 10^6/uL (4.35-5.55); RED CELL DISTRIBUTION WIDTH 13.4 % (11.5-14.0); WHITE BLOOD COUNT 9.8 10^3/uL (4.0-10.5)
[2018-09-06 16:23] LABS: ALANINE AMINOTRANSFERASE 38 U/L (21-72); ALBUMIN 4.5 g/dL (3.5-5.0); ALKALINE PHOSPHATASE 73 U/L (38-126); ANION GAP 9 (5-19); ASPARTATE AMINO TRANSFERASE 28 U/L (17-59); BILIRUBIN,DIRECT 0.3 mg/dL (0.0-0.4); BILIRUBIN,TOTAL 0.7 mg/dL (0.2-1.3); BLOOD UREA NITROGEN 23 mg/dL (7-20); CALCIUM 9.5 mg/dL (8.4-10.2); CARBON DIOXIDE 25 mmol/L (22-30); CHLORIDE 108 mmol/L (98-107); GLUCOSE 91 mg/dL (75-110); LIPASE 101.7 U/L (23-300); POTASSIUM 4.2 mmol/L (3.6-5.0); TOTAL PROTEIN 7.8 g/dL (6.3-8.2)
== END ==
LOC: LAB 15:22
PROVIDERS: ATTEND Physician Assistant Surgical
DX: R10.812 Left upper quadrant abdominal tenderness (principal); R10.811 Right upper quadrant abdominal tenderness; R10.816 Epigastric abdominal tenderness
CPT/HCPCS: 36415; 80048; 80076; 83690; 85027

== ENCOUNTER → 2018-09-09 | Outpatient (CLI) | payer BC ==
--- NOTE | 2018-09-09 09:01 | RADIOLOGY REPORT (SQ) ---
EXAM DESCRIPTION: CT ABDOMEN WITH IV ORAL CONT COMPLETED DATE/TIME: 09/09/2018 8:41 am REASON FOR STUDY: K86.9 DISEASE OF PANCREAS, UNSPECIFIED R93.3 ABNORMAL FINDINGS ON DX IMAGING OF P RT DIGESTIVE TRACT K86.9 DISEASE OF PANCREAS, UNSPECIFIED COMPARISON: None. TECHNIQUE: CT scan of the abdomen performed with intravenous and with oral contrast using helical sc anning technique with dynamic intravenous contrast injection. Images reviewed with lung, soft tissue, and bone windows. Reconstructed coronal and sagittal MPR images reviewed. Delayed images for evaluat ion of the urinary system also acquired and evaluated. All images stored on PACS. All CT scanners at this facility use dose modulation, iterative reconstruc tion, and/or weight based dosing when appropriate to reduce radiation dose to as low as reasonably ac hievable (ALARA). [facility]: Dose Right [facility]: CareDose [facility]: Dose Right [facility]: Teradose 4D [facility]: Atempo CONTRAST TYPE AND DOSE: contrast/concentration: Isovue 350.00 mg/ml; Total Contrast Delivered: 100.0 ml; Total Saline Delivered: 72.0 ml RENAL FUNCTION: BUN 23 creatinine 0.99. RADIATION DOSE: CT Rad equipment meets quality standard of care and radiation dose reduction techniq ues were employed. CTDIvol: 18.8 - 20.2 mGy. DLP: 1602 mGy-cm. . LIMITATIONS: None. FINDINGS: LOWER CHEST: No significant findings. No nodules or infiltrates. LIVER: Normal size. No masses. No dilated ducts. SPLEEN: Normal size. No focal lesions. PANCREAS: No masses. No significant calcifications. No adjacent inflammation or peripancreatic fluid collections. Pancreatic duct not dilated. GALLBLADDER: No identified stones by CT criteria. No inflammatory changes to suggest cholecystitis. ADRENAL GLANDS: No significant masses or asymmetry. RIGHT KIDNEY AND URETER: No solid masses. No significant calcifications. No hydronephrosis or hyd roureter. LEFT KIDNEY AND URETER: No solid masses. No significant calcifications. No hydronephrosis or hydr oureter. AORTA AND VESSELS: No aneurysm. No dissection. Renal arteries, SMA, celiac without stenosis. RETROPERITONEUM: No retroperitoneal adenopathy, hemorrhage or masses. BOWEL AND PERITONEAL CAVITY: No masses or inflammatory changes. Mild hazy appearance of the central mesentery. Scattered mesenteric lymph nodes measuring 1 cm or less. No free fluid. APPENDIX: Surgically absent. ABDOMINAL WALL: No masses. No hernias. BONES: No significant or acute findings. OTHER: No other significant finding. IMPRESSION: 1. MILD HAZY APPEARANCE OF THE MESENTERY, "BOYD MESENTERY ". NONSPECIFIC BUT MAY BE DUE TO UNDERLYI NG INFLAMMATION. THERE IS BORDERLINE PROMINENCE OF THE MESENTERIC LYMPH NODES AND FINDINGS MAY BE DU E TO MESENTERIC ADENITIS. 2. NO OTHER SIGNIFICANT FINDINGS. TECHNICAL DOCUMENTATION: JOB ID: [id number] Quality ID # [id number]: Final reports with documentation of one or more dose reduction techniques (e.g., Au tomated exposure control, adjustment of the mA and/or kV according to patient size, use of iterative reconstruction technique) 2010 [employer]- All Rights Reserved Reading location - IP/workstation name: [email or web address]
== END ==
LOC: RAD 07:54
PROVIDERS: ATTEND Internal Medicine Gastroenterology
DX: R93.3 Abnormal findings on diagnostic imaging of other parts of digestive tract (principal); K86.9 Disease of pancreas, unspecified
CPT/HCPCS: 74160

== ENCOUNTER → 2019-10-26 | Outpatient (CLI) | payer BC ==
[2019-10-26 11:26] LABS: HEMATOCRIT 43.8 % (37.9-51.0); HEMOGLOBIN 15.2 g/dL (13.5-17.0); MEAN CORPUSCULAR HEMOGLOBIN 30.3 pg (27.0-33.4); MEAN CORPUSCULAR HGB CONC 34.7 g/dL (32.0-36.0); MEAN CORPUSCULAR VOLUME 87 fl (80-97); PLATELET COUNT 301 10^3/uL (150-450); RED BLOOD COUNT 5.02 10^6/uL (4.35-5.55); RED CELL DISTRIBUTION WIDTH 13.5 % (11.5-14.0); WHITE BLOOD COUNT 7.7 10^3/uL (4.0-10.5)
[2019-10-26 11:55] LABS: ALBUMIN 4.7 g/dL (3.5-5.0); ALKALINE PHOSPHATASE 82 U/L (38-126); ANION GAP 15 (5-19); ASPARTATE AMINO TRANSFERASE 30 U/L (17-59); BILIRUBIN,DIRECT 0.2 mg/dL (0.0-0.4); BILIRUBIN,TOTAL 0.7 mg/dL (0.2-1.3); BLOOD UREA NITROGEN 14 mg/dL (7-20); CALCIUM 9.8 mg/dL (8.4-10.2); CARBON DIOXIDE 23 mmol/L (22-30); CHLORIDE 103 mmol/L (98-107); GLUCOSE 94 mg/dL (75-110); TOTAL PROTEIN 8.4 g/dL (6.3-8.2)
== END ==
LOC: LAB 10:53
PROVIDERS: ATTEND Physician Assistant Medical
DX: E29.1 Testicular hypofunction (principal); K21.9 Gastro-esophageal reflux disease without esophagitis; K76.0 Fatty (change of) liver, not elsewhere classified
CPT/HCPCS: 36415; 80053; 84153; 84402; 84403; 84443; 85027

== ENCOUNTER 2020-02-16 06:43 | Emergency (ER) | payer BC ==
--- NOTE | 2020-02-16 06:54 | ER Document Report ---
ED Medical Screen (RME) - General Chief Complaint: Chest Pain > 30 Stated Complaint: CHEST PAIN,DIZZINESS Time Seen by Provider: 02/16/20 06:48 Primary Care Provider: WILMA SARAVIA PA-C [Primary Care Provider] - Follow up as needed Information source: Patient Notes: Patient states that he was walking around in his home around 515 this morning and developed chest pain with lightheadedness and dizziness. Patient states he did become diaphoretic and lost his balance stumbling almost falling at home. Patient denies any cough or cold symptoms. Patient does report when he had the symptoms he did have some shortness of breath. Patient at this time is denying any symptoms. Patient with a history of arthritis and Klinefelter syndrome I have greeted and performed a rapid initial assessment of this patient. A comprehensive ED assessment and evaluation of the patient, analysis of test results and completion of the medical decision making process will be conducted by additional ED providers. TRAVEL OUTSIDE OF THE [place] IN LAST 30 DAYS: No - Related Data Allergies/Adverse Reactions: Penicillins Allergy (Verified 08/26/11 23:10) Sulfa (Sulfonamide Antibiotics) Allergy (Verified 08/26/11 23:10) Past Medical History - Past Medical History Cardiac Medical History: Denies: Hx Atrial Fibrillation, Hx Congestive Heart Failure, Hx Coronary Artery Disease, Hx DVT, Hx Heart Attack, Hx Hypercholesterolemia, Hx Hypertension, Hx Peripheral Vascular Disease, Hx Pulmonary Embolism, Hx Heart Murmur Pulmonary Medical History: Denies: Hx Asthma, Hx Bronchitis, Hx COPD, Hx Pneumonia, Hx Intubation, Hx Respiratory Failure, Hx Sleep Apnea, Hx Tuberculosis Renal/ Medical History: Denies: Hx Peritoneal Dialysis Malignancy Medical History: Denies Hx Bone Cancer, Denies Hx Brain Cancer, Denies Hx Colorectal Cancer, Denies Hx Leukemia, Denies Hx Liver Cancer, Denies Hx Lung Cancer, Denies Hx Lymphoma, Denies Hx Pancreatic Cancer, Denies Hx Renal (Kidney) Cancer, Denies Hx Skin Cancer GI Medical History: Denies: Hx Cirrhosis, Hx Crohn's Disease, Hx Diverticulitis, Hx Gastroesophageal Reflux Disease, Hx Hepatitis, Hx Hiatal Hernia, Hx Ulc erative Colitis Musculoskeltal Medical History: Denies Hx Arthritis, Denies Hx Fibromyalgia, Denies Hx Gout Psychiatric Medical History: Denies: Hx Attention Deficit Hyperactivity Disorder, Hx Bipolar Disorder, Hx Dementia, Hx Depression, Hx Personality Disorder, Hx Post Traumatic Stress Disorder, Hx Schizoaffective Disorder Traumatic Medical History: Denies: Hx Gunshot Wound, Hx Pneumothorax, Hx Traumatic Brain Injury Infectious Medical History: Denies: Hx C-Diff, Hx Hepatitis, Hx HIV, Hx MRSA, Hx VRE Past Surgical History: Reports: Hx Appendectomy, Hx Pancreatic Surgery - Immunizations Hx Diphtheria, Pertussis, Tetanus Vaccination: Yes Physical Exam - Cardiovascular Rhythm: Regular Heart sounds: S1 appreciated, S2 appreciated Doctor's Discharge - Discharge Referrals: WILMA SARAVIA PA-C [Primary Care Provider] - Follow up as needed
[2020-02-16 07:11] LABS: ABSOLUTE BASOPHILS # (AUTO) 0.1 10^3/uL (0.0-0.2); ABSOLUTE EOSINOPHILS # (AUTO) 0.3 10^3/uL (0.0-0.6); ABSOLUTE LYMPHOCYTES (AUTO) 3.7 10^3/uL (0.5-4.7); ABSOLUTE MONOCYTES (AUTO) 0.9 10^3/uL (0.1-1.4); ABSOLUTE NEUT (AUTO) 5.2 10^3/uL (1.7-8.2); BASOPHILS % (AUTO) 1.1 % (0-2); EOSINOPHILS % (AUTO) 2.7 % (0-6); HEMATOCRIT 42.6 % (37.9-51.0); HEMOGLOBIN 14.7 g/dL (13.5-17.0); LYMPHOCYTES % (AUTO) 36.4 % (13-45); MEAN CORPUSCULAR HEMOGLOBIN 29.7 pg (27.0-33.4); MEAN CORPUSCULAR HGB CONC 34.5 g/dL (32.0-36.0); MEAN CORPUSCULAR VOLUME 86 fl (80-97); PLATELET COUNT 344 10^3/uL (150-450); RED BLOOD COUNT 4.95 10^6/uL (4.35-5.55); RED CELL DISTRIBUTION WIDTH 14.1 % (11.5-14.0); SEGMENTED NEUTROPHILS % (AUTO) 50.8 % (42-78); TOTAL CELLS COUNTED % (AUTO) 100 %; WHITE BLOOD COUNT 10.3 10^3/uL (4.0-10.5)
--- NOTE | 2020-02-16 07:19 | EKG REPORT ---
SEVERITY:- ABNORMAL ECG - SINUS RHYTHM LEFT VENTRICULAR HYPERTROPHY BORDERLINE T ABNORMALITIES, INFERIOR LEADS : Confirmed by: Kalyan Kemp MD 16-Feb-2020 07:18:39
--- NOTE | 2020-02-16 07:26 | RADIOLOGY REPORT (SQ) ---
AP Portable chest: 02/16/2020 6:24 AM CDT History: 49-year old patient with chest pain. Comparison: None available Findings: The cardiomediastinal silhouette is normal in size. No pneumothorax is seen. No acute airspace opacities are seen. No discrete pleural effusion is apparent. Impression: No acute airspace opacities are seen.
--- NOTE | 2020-02-16 08:13 | ER Document Report ---
ED General - General Chief Complaint: Dizziness Stated Complaint: CHEST PAIN,DIZZINESS Time Seen by Provider: 02/16/20 06:48 Primary Care Provider: WILMA SARAVIA PA-C [COMMUNITY BASED STAFF] - Follow up as needed Notes: Chief complaint: Chest pain HPI: 49-year-old male with history of Klinefelter syndrome and taking testosterone supplement has been having problems with significant arthritic symptoms of his knees and ankles patient was given a brief course of oral methylprednisolone by his primary care physician which he completed 2 days ago. He awakened this morning around 5:15 AM. He had some vague tingling sensation in his left shoulder area without radiation. He also felt dizzy. The symptoms lasted for about 30 minutes. He said when he got up to go the bathroom he felt a little unsteady on his feet and stumbled but did not fall. He denies syncope. He denies any swelling or pain in the calf area. He denies any history of thromboembolic disease. He was admitted to the hospital here in 2017 for nonspecific chest discomfort. Cardiac enzymes and EKGs were unremarkable at that time and he also had a normal echocardiogram. He was seen by Dr. Singh for cardiology consultation at that time and underwent a stress test which was reportedly negative. He is a non-smoker. He is not diabetic. He has no history of hypertension. He has no family history of CAD. He has no history of hyperlipidemia. HEART Score: HISTORY 1 ECG 1 AGE 3 RISK FACTORS 0 TROPONIN 0 TOTAL: 3 If HEART score is < or = 3 AND both tronponin measurments are normal, the 30 day risk of a major adverse cardiac event (all-cause mortality, myocardia infarction or need for coronary revscularization) is < 1% (Sensitivity 100%, NPV 100%). TRAVEL OUTSIDE OF THE [place] IN LAST 30 DAYS: No - Related Data Allergies/Adverse Reactions: Penicillins Allergy (Verified 02/16/20 10:50) Sulfa (Sulfonamide Antibiotics) Allergy (Verified 02/16/20 10:50) Past Medical History - General Information source: Patient - Social History Smoking Status: Former Smoker Chew tobacco use (# tins/day): No Frequency of alcohol use: Occasional Drug Abuse: None Family History: None Patient has homicidal ideation: No - Past Medical History Cardiac Medical History: Denies: Hx Atrial Fibrillation, Hx Congestive Heart Failure, Hx Coronary Artery Disease, Hx DVT, Hx Heart Attack, Hx Hypercholesterolemia, Hx Hypertension, Hx Peripheral Vascular Disease, Hx Pulmonary Embolism, Hx Heart Murmur Pulmonary Medical History: Denies: Hx Asthma, Hx Bronchitis, Hx COPD, Hx Pneumonia, Hx Intubation, Hx Respiratory Failure, Hx Sleep Apnea, Hx Tuberculosis Renal/ Medical History: Denies: Hx Peritoneal Dialysis Malignancy Medical History: Denies Hx Bone Cancer, Denies Hx Brain Cancer, Denies Hx Colorectal Cancer, Denies Hx Leukemia, Denies Hx Liver Cancer, Denies Hx Lung Cancer, Denies Hx Lymphoma, Denies Hx Pancreatic Cancer, Denies Hx Renal (Kidney) Cancer, Denies Hx Skin Cancer GI Medical History: Denies: Hx Cirrhosis, Hx Crohn's Disease, Hx Diverticulitis, Hx Gastroesophageal Reflux Disease, Hx Hepatitis, Hx Hiatal Hernia, Hx Ulcerative Colitis Musculoskeletal Medical History: Denies Hx Arthritis, Denies Hx Fibromyalgia, Denies Hx Gout Psychiatric Medical History: Denies: Hx Attention Deficit Hyperactivity Disorder, Hx Bipolar Disorder, Hx Dementia, Hx Depression, Hx Personality Disorder, Hx Post Traumatic Stress Disorder, Hx Schizoaffective Disorder Traumatic Medical History: Denies: Hx Gunshot Wound, Hx Pneumothorax, Hx Traumatic Brain Injury Infectious Medical History: Denies: Hx C-Diff, Hx Hepatitis, Hx HIV, Hx MRSA, Hx VRE Past Surgical History: Reports: Hx Appendectomy, Hx Pancreatic Surgery - Immunizations Hx Diphtheria, Pertussis, Tetanus Vaccination: Yes Review of Systems - Review of Systems Notes: Constitutional: Negative for fever. HENT: Negative for sore throat. Eyes: Negative for visual changes. Cardiovascular: As per HPI. Respiratory: Negative for shortness of breath. Gastrointestinal: History of GERD. Negative for abdominal pain, vomiting or diarrhea. Genitourinary: Negative for dysuria. Musculoskeletal: As per HPI. Skin: Negative for rash. Neurological: Negative for headaches, weakness or numbness. 10 point ROS negative except as marked above and in HPI. Physical Exam - Vital signs Vitals: Temp 98.4 F 02/16/20 06:45 - Notes Notes: GENERAL: Well-developed well-nourished appearing in no acute distress. SKIN: Good turgor no rashes. HEAD: Normocephalic atraumatic. EYES: PERRLA. EOMI. Conjunctivae and sclerae clear. EARS: CANALS AND TMS CLEAR. NOSE: CLEAR. MOUTH: Moist mucosa. Good dentition. No stridor or edema. No drooling. NECK: Supple. No masses or thyromegaly. No adenopathy. Carotids 2+ without bruits. No JVD. BACK: Symmetrical without tenderness. CHEST: Respirations unlabored. Breath sounds clear and symmetrical. HEART: Regular rhythm. No murmur gallop or rub. ABDOMEN: Soft nontender without masses, organomegaly or rebound. Bowel sounds normally active. No bruits. GENITALIA: Deferred. EXTREMITIES: No edema. No calf tenderness. Cap refill less than 1.5 seconds. Dorsalis pedis and posterior tibial pulses 3+ and symmetrical. NEUROLOGICAL: GCS 15. Alert and oriented x3. Normal gait. Fluent speech. Cranial nerves II through XII intact. Sensorimotor and cerebellar normal. Normal tone. PSYCHIATRIC: Appropriate affect. Course - Re-evaluation Re-evalutation: 02/16/20 12:27 Patient's heart score is less than 3. He has had 2 troponins 3 hours apart which are both within normal range. EKG repeated x2 did not show any acute ST changes. Patient symptoms totally resolved by time of arrival here and he is felt well except for some mild nausea. He appears stable for outpatient follow- up with primary care physician and they can talk about getting a repeat treadmill test as necessary. - Vital Signs Vital signs: Temp Pulse Resp BP Pulse Ox 98.4 F 14 133/94 H 94 02/16/20 06:45 02/16/20 11:01 02/16/20 11:01 02/16/20 11:01 - Laboratory Result Diagrams: 02/16/20 06:05 02/16/20 07:40 Laboratory results interpreted by me: 02/16/20 02/16/20 06:05 07:40 RDW 14.1 H BUN 23 H - EKG Interpretation by Me Rhythm: Arrthymia Additional EKG results interpreted by me: 02/16/20 08:15 Twelve-lead EKG from 0642 hrs. was reviewed contemporaneously by me demonstrating a sinus bradycardia with a rate of 53. Intervals are normal. A xis is +3 degrees. There are no acute ST/T wave changes. There are changes consistent with left ventricular hypertrophy which appear unchanged in comparison to earlier tracing from August 19, 2017. 02/16/20 08:17 Discharge - Discharge Clinical Impression: Chest pain Qualifiers: Chest pain type: unspecified Qualified Code(s): R07.9 - Chest pain, unspecified Condition: Stable Disposition: HOME, SELF-CARE Instructions: Antinausea Medication ([facility]) Additional Instructions: Chest Pain of Unclear Cause The exact cause of your chest pain isn't clear. Fortunately, there is no evidence of a dangerous medical condition. Further testing may be required to find the source of the pain. Most often, we find that this pain is coming from the chest wall -- the muscles or rib joints in the chest. But chest pain can come from the lung and lung lining, the esophagus, the heart valves or heart lining, and even the stomach or gallbladder. Rest. Eat lightly until the pain is gone. We may prescribe medicine for pain and inflammation. You should call the physician immediately if the pain radiates to the shoulder, jaw or arms; if you start to run a fever or develop a cough; or if you develop shortness of breath, or other new or alarming symptoms. Follow-up with your primary care physician within the next 3 to 5 days. Return here as needed for new or worsening symptoms: Pain that is worsening or unimproved Uncontrolled vomiting High fever or shaking chills Overall worsening Prescriptions: Ondansetron [Zofran Odt 4 mg Tablet] 1 - 2 tab PO Q4H PRN #15 tab.rapdis PRN Reason: For Nausea/Vomiting Referrals: WILMA SARVAIA PA-C [COMMUNITY BASED STAFF] - Follow up as needed
[2020-02-16 08:14] LABS: ALBUMIN 4.2 g/dL (3.5-5.0); ALKALINE PHOSPHATASE 79 U/L (38-126); ANION GAP 8 (5-19); ASPARTATE AMINO TRANSFERASE 21 U/L (17-59); BILIRUBIN,TOTAL 0.5 mg/dL (0.2-1.3); BLOOD UREA NITROGEN 23 mg/dL (7-20); CALCIUM 9.2 mg/dL (8.4-10.2); CARBON DIOXIDE 24 mmol/L (22-30); CHLORIDE 105 mmol/L (98-107); CREATINE KINASE 131 U/L (55-170); GLUCOSE 101 mg/dL (75-110); POTASSIUM 4.3 mmol/L (3.6-5.0); TOTAL PROTEIN 7.5 g/dL (6.3-8.2)
[2020-02-16 08:33] LABS: TROPONIN I < 0.012 ng/mL
[2020-02-16] MEDS ORDERED: ONDANSETRON HCL INJ/PF 4 MG/2 ML SDV IV ONE (10:03)
[2020-02-16 13:12] VITALS: BP 125/96
== END 2020-02-16 13:11 | disposition home or self-care (01) ==
LOC: ER 06:43
DX: R07.9 Chest pain, unspecified (principal); R42 Dizziness and giddiness; Q98.4 Klinefelter syndrome, unspecified; Z88.0 Allergy status to penicillin; Z88.2 Allergy status to sulfonamides
CPT/HCPCS: 93005; 99285; 96374; 36415; 82553; 82550; 83735; 85025; 80053; 84484; 71045; 93010; J2405